=== PATIENT | female | born 1980 | race American Indian/Alaskan Native ===

== ENCOUNTER 2020-06-06 06:05 | Emergency (ER) | payer MEDICAID ==
[2020-06-06 08:40] VITALS: BP 116/78
--- NOTE | 2020-06-06 08:48 | Emergency Department Report ---
ED General Adult HPI - General Chief complaint: Upper Respiratory Infection Stated complaint: CONGESTION/COUGH/SORE THROAT Time Seen by Provider: 06/06/20 08:40 Source: patient Mode of arrival: Ambulatory Limitations: No Limitations - History of Present Illness Initial comments: 39-year-old female patient with history of HIV, diabetes, hypertension, and hyperlipidemia presents to emergency department with complaints of subjective fever, nonproductive cough, congestion, hoarseness, sneezing, and sore throat for 6 days. She has taken [id number]-[id number] remedies with limited relief. She has not been tested for COVID-19 since the onset of her symptoms. No known sick contacts. No current steroid or antibiotic use. No recent travel. Denies headache, neck stiffness, rash, vomiting, diarrhea, chest pain, shortness of breath, wheezing, abdominal pain. Denies all other complaints at this time. - Related Data Previous Rx's Medication Instructions Recorded Last Taken Type Blood-Glucose Meter [Accu-Chek 1 each MC PRN #1 each 09/06/19 Unknown Rx Guide Monitor System] Naproxen [Naprosyn] 500 mg PO BID #20 tablet 06/06/20 Unknown Rx Nystas/Diphen/Xyl Visc/Mylanta 30 ml MM Q4H PRN #1 bottle 06/06/20 Unknown Rx [Magic Mouthwash] guaiFENesin/DEXTROMETHORPHAN 1 each PO Q6H #20 capsule 06/06/20 Unknown Rx [Coricidin Hbp Chest Akira-Cough] Allergies Allergy/AdvReac Type Severity Reaction Status Date / Time Penicillins Allergy Swelling Verified 09/06/19 15:23 Sulfa (Sulfonamide Allergy Swelling Verified 09/06/19 15:23 Antibiotics) ED Review of Systems ROS: Stated complaint: CONGESTION/COUGH/SORE THROAT Other details as noted in HPI Other: GENERAL: Positive for subjective fever. ENT: Positive for nasal congestion, sore throat, hoarseness, and sneezing. CARDIOVASCULAR: Negative for chest pain, palpitations, lower extremity swelling. PULMONARY: Positive for cough. GASTROINTESTINAL: Negative for abdominal pain, nausea, vomiting, diarrhea, constipation. MUSCULOSKELETAL: Negative for joint pain, joint swelling, myalgias, back pain, neck pain. NEUROLOGICAL: Negative for headache, seizure, syncope, paresthesias, weakness. INTEGUMENTARY: Negative for erythema, rash, diaphoresis, laceration, ecchymosis. HEMATOLOGICAL: Negative for hemoptysis, hematemesis, hematochezia, hematuria. PSYCHIATRIC: Negative for hallucinations, suicidal ideation, homicidal ideation, anxiety, depression. ED Past Medical Hx - Past Medical History Previous Medical History?: Yes Hx Hypertension: Yes Hx Diabetes: Yes Hx HIV: Yes Additional medical history: HIGH CHOLESTROL - Surgical History Past Surgical History?: Yes Additional Surgical History: Tubaligation - Social History Smoking Status: Current Every Day Smoker Substance Use Type: None - Medications Home Medications: Home Medications Medication Instructions Recorded Confirmed Last Taken Type Blood-Glucose Meter [Accu-Chek 1 each MC PRN #1 each 09/06/19 Unknown Rx Guide Monitor System] Naproxen [Naprosyn] 500 mg PO BID #20 tablet 06/06/20 Unknown Rx Nystas/Diphen/Xyl Visc/Mylanta 30 ml MM Q4H PRN #1 bottle 06/06/20 Unknown Rx [Magic Mouthwash] guaiFENesin/DEXTROMETHORPHAN 1 each PO Q6H #20 capsule 06/06/20 Unknown Rx [Coricidin Hbp Chest Akira-Cough] ED Physical Exam - General Limitations: No Limitations - Other Other exam information: General: Awake and alert. No acute distress. Head: Atraumatic, normocephalic. Eyes: EOMI. Pupils are equal and round. Normal sclera and conjunctiva. ENT: Oral mucosa is moist. Normal pharyngeal exam. Voice is hoarse. Neck: Supple. No lymphadenopathy. Pulmonary: No respiratory distress. Clear to auscultation bilaterally. Cardiac: Regular rate and rhythm. Pulses are palpable and equal bilaterally. No lower extremity cyanosis or edema. Skin: Warm and dry. No rashes. Abdomen: Soft, non-tender, non-protuberant. No guarding, rigidity, or rebound. Bowel sounds are normal. No organomegaly or masses noted. Back: Normal alignment. No CVA tenderness. Extremities: Symmetrical. Full range of motion intact. Neurological: Alert and oriented, appropriately interactive, no focal deficits. Psych: Cooperative. Appropriate mood and affect. Speech is evenly metered. Thoughts are logically construed. ED Course Vital Signs 06/06/20 06:17 Temperature 98.5 F Pulse Rate 86 Respiratory 18 Rate Blood Pressure 116/78 O2 Sat by Pulse 96 Oximetry ED Medical Decision Making - Medical Decision Making Differential diagnosis including but not limited to: strep pharyngitis, viral pharyngitis, peritonsillar abscess, retropharyngeal abscess, sinusitis, pneumonia, allergic rhinitis, viral upper respiratory infection, opportunistic infection Patient presents emergency department complaints of sore throat, hoarseness, congestion, and sneezing. She is afebrile. Vital signs are stable. She is HIV positive; currently on antiretroviral therapy. Last CD4 count was undetectable. Chest x-ray was obtained to evaluate for radiographic evidence of opportunistic infection, such as Pneumocystis jirovecii, without evidence of acute process. History and exam findings are suggestive of viral laryngitis. Patient will be discharged home with appropriate symptomatic treatment and referred to primary care provider for close outpatient follow-up. Patient expressed understanding and is agreeable to plan of care. Disease transmission precautions discussed. Strict return precautions provided. Repeat exam is unremarkable and benign. History, exam, diagnostic testing, and current condition do not suggest worrisome pathology to warrant further testing, continued ED treatment, admission, or surgical evaluation at this point. Given the low probability of a significant medical illness, it would be more likely to result in harm than benefit to perform further testing at this stage. Discussed findings, presumptive diagnosis, need for follow-up and specific signs/symptoms that should prompt immediate return to the emergency department. Instructions were explained in detail to the patient in addition to giving written discharge information. Patient expressed understanding and was given the opportunity to ask questions, all of which were satisfactorily answered prior to discharge home. Critical care attestation.: If time is entered above; I have spent that time in minutes in the direct care of this critically ill patient, excluding procedure time. ED Disposition Clinical Impression: Laryngitis Disposition: DC-01 TO HOME OR SELFCARE Is pt being admited?: No Does the pt Need Aspirin: No Condition: Stable Instructions: Laryngitis, [id number] Additional Instructions: Take Coricidin as directed for cough/congestion Take Naprosyn twice daily with food as needed for pain. Use Magic Mouthwash as needed for sore throat. Rest. Drink plenty of fluids. Wash hands frequently to prevent disease transmission. Do not share food or drinks with others. Follow-up with your primary care provider this week. Call today to schedule appointment. Return to the emergency department immediately for new or worsening symptoms. Prescriptions: guaiFENesin/DEXTROMETHORPHAN [Coricidin Hbp Chest Akira-Cough] 1 each PO Q6H #20 capsule Nystas/Diphen/Xyl Visc/Mylanta [Magic Mouthwash] 30 ml MM Q4H PRN #1 bottle PRN Reason: Sore Throat Naproxen [Naprosyn] 500 mg PO BID #20 tablet Referrals: CARLOS HOUSER MD [Staff Physician] - 3-5 Days Time of Disposition: 09:52
--- NOTE | 2020-06-06 09:45 | XRay Report ---
CHEST 2 VIEWS INDICATION / CLINICAL INFORMATION: cough; (+) HIV. COMPARISON: None available. FINDINGS: SUPPORT DEVICES: None. HEART / MEDIASTINUM: No significant abnormality. LUNGS / PLEURA: Clear lungs. No significant pleural effusion. No pneumothorax. ADDITIONAL FINDINGS: No significant additional findings. IMPRESSION: 1. No acute abnormality of the chest. Signer Name: Haim Drake MD Signed: 06/06/2020 9:41 AM Workstation Name: [id number]
== END 2020-06-06 10:00 | disposition home or self-care (01) ==
LOC: ED 06:05
DX: J04.0 Acute laryngitis (principal); I10 Essential (primary) hypertension; E11.9 Type 2 diabetes mellitus without complications; Z21 Asymptomatic human immunodeficiency virus [HIV] infection status; F17.200 Nicotine dependence, unspecified, uncomplicated; Z98.51 Tubal ligation status; Z79.899 Other long term (current) drug therapy; Z88.0 Allergy status to penicillin; Z88.2 Allergy status to sulfonamides
CPT/HCPCS: 71046